=== PATIENT | female | born 1930 | race Caucasian/White ===

== ENCOUNTER 2017-12-11 19:36 | Emergency (ER) | payer MEDICARE ==
--- NOTE | 2017-12-11 21:49 | RAD ---
THREE VIEWS OF THE LEFT HAND 12/11/17 COMPARISON: None. HISTORY: Trip, fall, injury, pain. FINDINGS: There is questionable punctate foci of subcutaneous gas adjacent to the fifth metacarpal. Question la ceration in this region. There is an obliquely oriented nondisplaced fracture involving the mid/dista l shaft of the fifth metacarpal, best seen on image 2 of 3. No intra-articular extension or dislocati on. There is prominent degenerative change at the carpometacarpal joint of the thumb. IMPRESSION: Obliquely oriented nondisplaced fracture involving the mid/distal shaft of the fifth metacarpal. Ques tion adjacent subcutaneous gas on the basis of laceration. POS: YOSHI
--- NOTE | 2017-12-11 21:52 | RAD ---
TWO VIEWS OF THE LEFT FOREARM 12/11/17 COMPARISON: None. HISTORY: Trauma, pain. FINDINGS/IMPRESSION: There is no displaced fracture or evidence of dislocation seen involving the left radius or ulna. Que stion of punctate foci of gas within the soft tissues at the base of the fifth metacarpal may signify laceration in the proper clinical setting. Artifact is a possibility as well. POS: YOSHI
[2017-12-11] MEDS ORDERED: Lidocaine 1% w/Epinephrine 1:100K 20 ML VIAL ONE (22:53)
[2017-12-11] MEDS ORDERED: Adacel (T-DAP) 0.5 ML VIAL ONE (22:53)
== END 2017-12-12 00:59 | disposition home or self-care (01) ==
LOC: ERS 19:36
DX: S62.357A Nondisplaced fracture of shaft of fifth metacarpal bone, left hand, initial encounter for closed fracture (principal); S51.812A Laceration without foreign body of left forearm, initial encounter; S61.412A Laceration without foreign body of left hand, initial encounter; S61.512A Laceration without foreign body of left wrist, initial encounter; E78.5 Hyperlipidemia, unspecified; I10 Essential (primary) hypertension; W01.0XXA Fall on same level from slipping, tripping and stumbling without subsequent striking against object, initial encounter
CPT/HCPCS: 12004; 26600; 90471; 90715; J2001